=== PATIENT | female | born 1995 | race Caucasian/White ===

== ENCOUNTER 2018-09-22 20:06 | Emergency (ER) | payer SELFPAY ==
[~2018-09-22 20:06] MED LIST: PREN1TAB62 PO
[2018-09-23] MEDS ORDERED: AMOX500C2 PO (02:28)
[2018-09-23] MEDS ORDERED: IBUP800T48 PO (02:28)
== END 2018-09-22 21:14 | disposition left against medical advice (07) ==
LOC: E/R 20:06
DX: Z53.21 Procedure and treatment not carried out due to patient leaving prior to being seen by health care provider (principal)
CPT/HCPCS: 99281

== ENCOUNTER 2018-09-22 23:38 | Emergency (ER) | payer MEDICAID ==
[~2018-09-22] VITALS: Ht 152.4 cm; Wt 67.7 kg
[2018-09-22 23:56] VITALS: Ht 152.4 cm; Wt 67.7 kg
[2018-09-23] MEDS ORDERED: AMOX500C2 PO (02:28)
[2018-09-23] MEDS ORDERED: IBUP800T48 PO (02:28)
--- NOTE | 2018-09-23 02:32 | ERD ---
ER Documentation Chief Complaint Chief Complaint C/O CORSENING LT EAR PIAN X1 WEEK HPI During the patient's encounter translation services were utilized Language: [Australian] Source: [in person] 23-year-old female presents emergency room with proximally 5 days of left ear pain and throbbing sensation with moderate pain that is constant. She denies any fevers or chills. No cough no nasal congestion. She denies any neck pain. ROS All systems reviewed and are negative except as per history of present illness. Medications Home Meds Active Scripts Amoxicillin* (Amoxicillin*) 500 Mg Cap, 500 MG PO TID for 10 Days, CAP Prov:MAGDIEL MACK MD 09/23/18 Ibuprofen* (Motrin*) 800 Mg Tab, 800 MG PO Q6H PRN for PAIN AND OR ELEVATED TEMP, #30 TAB Prov:MAGDIEL MACK MD 09/23/18 Reported Medications Vit-Iron Fumarate-FA ( Vitamin Tablet) 1 Each Tablet, 1 TAB PO DAILY, TAB 11/05/14 Allergies Allergies: Coded Allergies: No Known Allergy (Unverified , 03/22/14) PMhx/Soc Hx Alcohol Use: No Hx Substance Use: No Hx Tobacco Use: No FmHx Family History: No diabetes Physical Exam Vitals Vital Signs Date Temp Pulse Resp B/P (MAP) Pulse Ox O2 O2 Flow FiO2 Time Delivery Rate 09/22/18 98.6 83 18 103/58 100 23:56 (73) Physical Exam General: Well developed, well nourished, no acute distress Head: Normocephalic, atraumatic. Eyes: EOM intact ENT: Moist mucous membranes, left tympanic membrane is erythematous and bulging and opaque. Right tympanic membrane is normal Neck: Full ROM, no lymphadenopathy Respiratory: No respiratory distress Cardiovascular: Well perfused distally Abdominal: Nondistended : Deferred MSK: No edema, no unilateral swelling, 5/5 strength Neurologic: Alert and oriented, moving all extremities, normal speech, steady gait Skin: No rash Psych: Normal mood Procedures/MDM Signs and symptoms are very consistent with uncomplicated left acute otitis media. Empiric antibiotics will be appropriate. Nasal decongestants advised. No systemic signs or symptoms The patient does not have an identifiable emergent medical condition that warrants inpatient hospitalization at this time. The patient is deemed safe for discharge with outpatient follow-up. We discussed follow up with the patient's primary care doctor within 24 to 48 ho urs as needed. We also discussed return to the emergency room for worsening symptoms or worsening condition. Outpatient referral: None required Discharge Medications: Amoxicillin, Motrin Departure Diagnosis: Primary Impression: Otitis media, left Otitis media type: unspecified Qualified Codes: H66.92 - Otitis media, unspecified, left ear Condition: Stable Patient Instructions: Otitis Media, Abx Tx (Adult) [facility]errals[facility] Usted se velasco hecho un examen mdico de control que le indica que no est en alexsandra condicin que requiera tratamiento urgente en el Departamento de Emergencia. Un estudio ms profundo y el tratamiento de mathews condicin pueden esperar sin ningn riesgo hasta que usted sea atendida/o en el consultorio de mathews mdico o alexsandra clnica. Es responsabilidad suya arreglar alexsandra shantell para el seguimiento del juliana. MANEJO DE CONDICIONES NO URGENTES EN EL FUTURO 1) Si usted tiene un mdico de atencin primaria: Usted debera llamar a mathews mdico de atencin primaria antes de venir al departamento de emergencia. Despus de las horas de consultorio, mathews doctor o mathews asociado/a est disponible por telfono. El mdico o enfermero de miky en el servicio telefnico puede asesorarle por arina medio para atender el problema, o juliana contrario se puede programar alexsandra shantell. 2) Si usted no tiene un mdico de atencin primaria: Llame al mdico o clnica de referencia que aparece abajo taiwo las horas de consultorio para hacer alexsandra shantell para que le vean. CLINICAS: [facility] 296 [phone] [address] [facility] 594 [phone] [address] [facility] 260 [phone] [facility] [phone] [facility] [place] [id number] [phone] [facility] [phone] [address] [facility] [facility] () Ustal se velasco hecho un examen mdico de control que le indica que no est en alexsandra condicin que requiera tratamiento urgente en el Departamento de Emergencia. Un estudio ms profundo y el tratamiento de mathews condicin pueden esperar sin ningn riesgo hasta que usted sea atendida/o en el consultorio de mathews mdico o alexsandra clnica. Es responsabilidad suya arreglar alexsandra shantell para el seguimiento del juliana. MANEJO DE CONDICIONES NO URGENTES EN EL FUTURO 1) Si usted tiene un mdico de atencin primaria: Usted debera llamar a mathews mdico de atencin primaria antes de venir al departamento de emergencia. Despus de las horas de consultorio, mathews doctor o mathews asociado/a est disponible por telfono. El mdico o enfermero de miky en el servicio telefnico puede asesorarle por arina medio para atender el problema, o juliana contrario se puede programar alexsandra shantell. 2) Si usted no tiene un mdico de atencin primaria: Llame al mdico o condado institucions de referencia que aparece abajo taiwo las horas de consultorio para hacer alexsandra shantell para que le vean. SI USTED NO PUEDE PAGAR PARA CATHY UN MEDICO puede ir a: [facility] [id number] [place] [address] [facility] [address] [place] [address] [facility] [address] [place] [address] [facility] [address] [place] [address] Additional Instructions: Llame al doctor nombrado abajo (Referral Sources) MAANA y lazara alexsandra SHANTELL PARA DENTRO DE ALEXSANDRA SEMANA. Dgale a la secretaria que nosotros le instruimos hacer esta shantell.Avise o llame si mathews condicin se empeora antes de la shantell. MAGDIEL MACK MD Sep 23, 2018 02:32
[2018-09-23 02:33] VITALS: BP 110/61; PULSE 76; RESP 16
== END 2018-09-23 02:33 | disposition home or self-care (01) ==
LOC: E/R 23:38
DX: H66.92 Otitis media, unspecified, left ear (principal)
CPT/HCPCS: 99283

== ENCOUNTER → 2018-10-24 | Outpatient (CLI) | payer MEDICAID ==
[~2018-10-24] MED LIST changes: +AMOX500C2 PO; +IBUP800T48 PO
== END | disposition home or self-care (01) ==
LOC: RAD 12:24
PROVIDERS: ATTEND Obstetrics & Gynecology
DX: O26.899 Other specified pregnancy related conditions, unspecified trimester (principal); R76.11 Nonspecific reaction to tuberculin skin test without active tuberculosis; Z3A.00 Weeks of gestation of pregnancy not specified
CPT/HCPCS: 71046

== ENCOUNTER 2019-01-23 20:42 | Inpatient (IN) | payer MEDICAID ==
[~2019-01-23] VITALS: Ht 152.4 cm; Wt 74.0 kg
[2019-01-23 21:00] VITALS: Ht 152.4 cm; Wt 74.0 kg
[2019-01-23] MEDS ORDERED: FERR134T PO (21:05)
[2019-01-23] MEDS ORDERED: LACTATED RINGER'S 1,000 ML IV PRN (21:23)
[2019-01-23] MEDS ORDERED: LACTATED RINGER'S 1,000 ML IV SCH (21:23)
[2019-01-23] MEDS ORDERED: LIDOCAINE 1% (MPF) 30 ML INJ INJ PRN (21:30)
[2019-01-23] MEDS ORDERED: METHYLERGONOVINE 0.2 MG INJ IM PRN (21:30)
[2019-01-23] MEDS ORDERED: MISOPROSTOL 200 MCG TAB PR PRN (21:30)
[2019-01-23] MEDS ORDERED: IBUPROFEN 600 MG TAB PO PRN (21:30)
[2019-01-23] MEDS ORDERED: AMPICILLIN 2 GM/NS (PMX) 100 ML IV ONE (21:30)
[2019-01-23] MEDS ORDERED: OXYTOCIN 30 UNITS/LR 500 ML IV PRN (21:30)
[2019-01-23] MEDS ORDERED: OXYTOCIN 30 UNITS/LR 500 ML IV SCH ×2 (21:30)
[2019-01-23] MEDS ORDERED: BUTORPHANOL 2 MG INJ IV PRN ×2 (21:30)
[2019-01-23] MEDS ORDERED: CARBOPROST 250 MCG INJ IM PRN (21:30)
--- NOTE | 2019-01-23 21:41 | TRIAGE ---
OB Triage Datetime Report Generated by CPN: 01/23/2019 21:41 Datetime: 01/23/2019 21:20 Stage of : OB Triage Datetime: 01/23/2019 21:16 Stage of : OB Triage Labor Evaluation Frequency: 2-3 Monitor Mode: External Duration (sec)2399: 60-90 Quality: Moderate Pattern: Normal: <= 5 Contractions in 10 Minutes Resting Tone [place]: Relaxed Heart Rate FHR Baseline Rate: 130 Monitor Mode: External US FHR Baseline Changes: No Baseline Change Variability: Moderate 6-25 bpm Accelerations: 15X15 Decelerations: None Category: Category I Vaginal Exam Dilatation (cms): 5.0 Effacement (%): 90 Station: -2 Exam By: Jackie Mosley Membrane Status: Bulging Vaginal Bleeding: Scant Cervix, Consistency: Soft Cervix, Position: Posterior Presentation 'A': Cephalic Datetime: 01/23/2019 21:00 Time of Arrival: 01/23/2019 20:30 EGA: 38.5 Arrived By: Ambulatory Arrived From: Home Chief Complaint: c/o ucs Movement: Present Contractions: Regular Time Contractions Began: 01/23/2019 03:00 Contractions: q5 Rupture of Membranes: Denies Vaginal Bleeding: Scant Vaginal Discharge: Present Recent Sexual Intercouse: Denies Abdominal Trauma: Not Applicable Patient Complaints: Contractions Time Provider Notified: 01/23/2019 21:20 Provider Notified: Dr Ann Initial Plan: EFM,UCS Datetime: 01/23/2019 20:45 Membrane Status: Intact
[2019-01-23 21:55] VITALS: BP 118/69; PULSE 63; RESP 17
[2019-01-24] MEDS ORDERED: MINERAL OIL LIGHT 10 ML VIAL TOP ONE
[2019-01-24] MEDS ORDERED: AMPICILLIN 1 GM/NS (PMX) 50 ML IV SCH (01:30)
--- NOTE | 2019-01-24 02:12 | LDN ---
Date/Time of Note Date/Time of Note DATE: 01/24/19 TIME: 02:10 Delivery Summary of a viable baby girl weighing 3150 grams or 6# 15 oz, 19" long, and with Apgars of 8/9. Weeks of Gestation 38w 6d Placenta Delivered: Spontaneously Meconium: none Episiotomy: No Perineal laceration: 0 Anesthesia type: None Estimated blood loss: 150 Sponge & Needle done & correct: Yes Any foreign bodies felt in the: No (vagina) Infant Delivery Information Sex Sex: female Apgars 1 Minute: 8 5 Minute: 9 Suctioning Nose & mouth suctioned at douglas: Yes Delee suction performed: No Umbilical Cord Umbilical cord with: 3 Vessels Cord presentations: no nuchal cord Cord Blood was obtained: Yes Mother & Baby Disposition Disposition Mom & Baby to Maternity; Good: Yes Baby to NICU: No TOÑO ROMERO MD Jan 24, 2019 02:12
[2019-01-24] MEDS: LACTATED RINGER'S 1,000 ML IV* SCH ×3 (02:16→19:20)
[2019-01-24] MEDS: OXYTOCIN 30 UNITS/LR 500 ML IV SCH ×2 (02:16→06:55)
--- NOTE | 2019-01-24 02:16 | HP ---
Date/Time of Note Date/Time of Note DATE: 01/24/19 TIME: 02:12 OB - History Hx of Present Free Text/Dictation 23 y.o. with an IUP at 38w 5d came in active labor with an initial exam of 90%/ 5 cm/-2 and intact. Chief Complaint: Labor Estimated Due Date: Feb 01, 2019 : 3 Para: 2 Care: Good Care Ultrasounds: Normal mid trimester US Obstetrical Complications: None Medical Complications: None Past Family/Social History * Past Medical, Surgical, Family and Obstetric Histories reviewed from chart. Blood Type: O+ Rubella: immune RPR/VDRL: Negative GBS Status: Positive HBsAG: Negative OB Admission Exam Vital Signs Vital Signs Vital Signs Date Temp Pulse Resp B/P (MAP) Pulse Ox O2 O2 Flow FiO2 Time Delivery Rate 01/23/19 98.2 63 17 118/69 21:55 (85) Physical Exam HEENT: WNL Heart: Rhythm Normal Lungs: Clear Abdomen: WNL Extremities: Normal Reflexes: Normal Cervical Dilatation: 5cm Effacement: Other (90%) Station: -2 Membranes: Intact Amniotic Fluid: Clear Heart Rate: 130's Accelerations: Accelerations Present Decelerations: No Decelerations Varibility: Moderate Contractions on Admission: < 5 Minutes Apart Intensity: Firm Last 72 hours Lab Results CBC & BMP 01/23/19 21:40 OB Assessment/Plan Reason for admission: active labor, group B positive strep Plan: Expectant Management Other plan: Antibiotic prophylaxis. TOÑO ROMERO MD Jan 24, 2019 02:16
[2019-01-24] MEDS ORDERED: HYDROCODONE/APAP (5/325) TAB PO PRN (02:30)
[2019-01-24] MEDS ORDERED: LANOLIN HPA 1 PKT TOP PRN (02:30)
[2019-01-24] MEDS ORDERED: CARBOPROST 250 MCG INJ IM PRN (02:30)
[2019-01-24] MEDS ORDERED: METHYLERGONOVINE 0.2 MG INJ IM PRN (02:30)
[2019-01-24] MEDS ORDERED: OXYTOCIN 30 UNITS/LR 500 ML IV PRN (02:30)
[2019-01-24] MEDS ORDERED: MISOPROSTOL 200 MCG TAB PR PRN (02:30)
[2019-01-24 03:20] VITALS: BP 106/62; PULSE 61; RESP 18
[2019-01-24] MEDS: IBUPROFEN 600 MG TAB PO SCH ×4 (06:51→23:57)
[2019-01-24 08:10] VITALS: BP 100/60; PULSE 60; RESP 18
[2019-01-24 16:00] VITALS: BP 99/49; PULSE 63
[2019-01-24 19:35] VITALS: BP 99/56; PULSE 63; RESP 18
[2019-01-24 23:35] VITALS: BP 101/57; PULSE 69; RESP 19
[2019-01-25] MEDS: LACTATED RINGER'S 1,000 ML IV* SCH ×2 (01:02→19:25)
[2019-01-25 03:35] VITALS: BP 96/51; PULSE 65; RESP 19
[2019-01-25] MEDS: IBUPROFEN 600 MG TAB PO SCH ×4 (05:52→23:30)
[2019-01-25 07:30] VITALS: BP 99/55; PULSE 55; RESP 18
--- NOTE | 2019-01-25 14:18 | DS ---
Date/Time of Note Date/Time of Note Home today or following day DATE: 01/25/19 TIME: 14:17 Obstetrical Discharge Record Final Diagnosis Final Diagnosis: Term delivered Other Final Diagnosis Status post vaginal delivery Vaginal Delivery Obstetrical Delivery: Spontaneous Condition on Discharge Physical Assessment Last Vitals: See nurse's notes Voiding: Yes Bowel Movement: Yes Breast: Soft, non-tender, Filling Fundus: Firm Abdomen and Incision: Abdomen is soft with firm fundus Calf Tenderness: No Patient Condition: Good RADHA HERRERA MD Jan 25, 2019 14:18
--- NOTE | 2019-01-25 14:19 | PD.PPDC ---
EXTRUSION DIE REPAIR MANAGER Discharge Instruction Provider Information Physician Information 23-year-old female had vaginal delivery Diagnosis [id number] Final Diagnosis: Hofox0f Status post vaginal delivery Condition Pwoub2In Patient Condition: Ytegm0z Good Diet Sjxyq0Oe Diet: Sxmxm6c Resume Regular Diet Activity/Restrictions [id number] Activity: Tmhva3y Normal Activity May Shower Slsko1Sy Restrictions: Cehih6l Nothing in the Vagina Pphhl8Wl Return to Work or School: [id number] Mar 20, 2019 Follow-up Follow-up with Physician: 2, 4, Week/Weeks (Clinic) Return to clinic for [id number] OB Instructions: Icdhe8g Breast Tenderness Depression Comment: Pelvic rest for 6 weeks RADHA HERRERA MD Jan 25, 2019 14:19
[2019-01-25] MEDS ORDERED: IBUP-1542 PO (14:20)
[2019-01-25 16:05] VITALS: BP 89/48; PULSE 63; RESP 16
[2019-01-25 19:40] VITALS: BP 107/54; PULSE 64; RESP 18
[2019-01-26] MEDS: LACTATED RINGER'S 1,000 ML IV* SCH ×2 (02:16→10:16)
[2019-01-26 03:45] VITALS: BP 104/53; PULSE 69; RESP 19
[2019-01-26] MEDS: IBUPROFEN 600 MG TAB PO SCH ×3 (05:31→17:35)
[2019-01-26 08:00] VITALS: BP 99/49; PULSE 64; RESP 18
[2019-01-26] MEDS ORDERED: DIPHTH/TET/ACEL PERTUSS (ADULT) 0.5 ML VIAL IM* ONE (09:00)
--- NOTE | 2019-01-27 17:42 | DELSUM ---
Delivery Summary A-C Datetime Report Generated by CPN: 01/27/2019 17:41 DELIVERY PERSONNEL Lapping Machine Tender: Alvarado, Savannah MATERNAL INFORMATION Delivery Anesthesia: None Medications in Delivery: 30 UNITS PITOCIN Delivery QBL (ml): 150 Placenta Cultured: No Maternal Complications: None LABOR SUMMARY EDC: 02/01/2019 00:00 No. Babies in Womb: 1 Attempted: No Labor Anesthesia: None LABOR INFORMATION Reason for Induction: Not Applicable Onset of Labor: 01/23/2019 03:00 Complete Dilatation: 01/24/2019 01:51 Group B Beta Strep: Positive Antibiotics # of Doses: 1 Antibiotics Time of Last Dose: 01/23/2019 22:00 Steroids Given: None Reason Steroids Not Administered: Not Applicable MEMBRANES Membranes Rupture Method: Spontaneous Rupture of Membranes: 01/24/2019 01:38 Length of Rupture (hr): 0.25 Amniotic Fluid Color: Clear Amniotic Fluid Amount: Small Amniotic Fluid Odor: None STAGES OF LABOR Stage 1 hr: 22 Stage 1 min: 51 Stage 2 hr: 0 Stage 2 min: 2 Stage 3 hr: 0 Stage 3 min: 4 Total Time in Labor hr: 22 Total Time in Labor min: 57 VAGINAL DELIVERY Episiotomy: None Laceration Extension: N/A Laceration Type: None Initial Vag Sponge Count: 10 Final Vag Sponge Count: 10 Initial Vag Sharps Count: 1 Final Vag Sharps Count: 0 Sponge Count Correct: Yes; Vaginal Sweep Performed Sharps Count Correct: Yes BABY A INFORMATION Delivery Date/Time: 01/24/2019 01:53 Method of Delivery: Vaginal Born in Route : No : N/A Forceps: N/A Vacuum Extraction: N/A Shoulder Dystocia : N/A SHOULDER DYSTOCIA BABY A Infant Delivery Date/Time: 01/24/2019 01:53 PRESENTATION/POSITION BABY A Presentation: Cephalic Cephalic Presentation: Vertex Vertex Position: Left Occipital Anterior Breech Presentation: N/A PLACENTA INFORMATION BABY A Placenta Delivery Time : 01/24/2019 01:57 Placenta Method of Delivery: Expressed Placenta Status: Delivered SCORES BABY A Heart Rate 1 min: >100 bpm Resp Effort 1 min: Good Cry Reflex Irritability 1 min: Cough/Sneeze/Pulls Away Muscle Tone 1 min: Active Motion Color 1 min: Blue/Pale Resuscitation Effort 1 min: Tactile Stimulation SCORE 1 MIN: 8 Heart Rate 5 min: >100 bpm Resp Effort 5 min: Good Cry Reflex Irritability 5 min: Cough/Sneeze/Pulls Away Muscle Tone 5 min: Active Motion Color 5 min: Body [place], Extremit Blue Resuscitation Effort 5 min: Tactile Stimulation SCORE 5 MIN: 9 INFORMATION BABY A Gestational Age at Delivery: 38.6 Gestational Status: Early Term- 37- 38.6 Weeks Infant Outcome : Liveborn, with signs of life Infant Condition : Stable Infant Sex: Female IDENTIFICATION/MEDS BABY A ID Band Number: [id number] ID Band Location: Right Leg; Left Arm Sensor Applied: Yes Sensor Number: [id number] Vitamin K Given : Not Given Erythromycin Given: Not Given WEIGHT/LENGTH BABY A Infant Birthweight (gm): 3150 Weight (lb): 6 Infant Weight (oz): 15 Length (in): 19.00 Infant Length (cm): 48.26 CORD INFORMATION BABY A No. Cord Vessels: 3 Nuchal Cord : Around Neck x1, Loose Cord Blood Taken: Yes Suction: Mouth; Nose
== END 2019-01-26 17:40 | disposition home or self-care (01) | DRG 807 ==
LOC: OBT 20:42 → L-D 20:42 → OBT 21:20 → L-D 21:20 → PP1 01-24 03:16
PROVIDERS: ADMIT Obstetrics & Gynecology; ATTEND Obstetrics & Gynecology
PROC: 10E0XZZ Delivery of Products of Conception, External Approach (ICD-10-PCS; principal; 2019-01-25)
DX: O99.824 Streptococcus B carrier state complicating childbirth (principal); Z37.0 Single live birth; Z3A.38 38 weeks gestation of pregnancy
CPT/HCPCS: 81001; 85025; 85610; 85730; 86592; 86850; 86900; 86901; 87086; 87340; G0463; J0290; J2590; J7120